=== PATIENT | male | born 1990 | race Caucasian/White ===

== ENCOUNTER 2021-06-24 04:21 | Emergency (ER) | payer OTHER ==
[~2021-06-24] VITALS: Ht 175.3 cm; Wt 90.9 kg
[2021-06-24 05:25] VITALS: BP 112/75
[2021-06-24] MEDS ORDERED: AZITHROMYCIN 500 MG TABLET PO ONE (05:30)
[2021-06-24] MEDS ORDERED: LIDOCAINE/PF 1% 2 ML VIAL IM ONE (05:30)
[2021-06-24] MEDS ORDERED: CefTRIAXone SODIUM 1 GM/VIAL IM ONE (05:30)
== END 2021-06-24 05:50 | disposition home or self-care (01) ==
LOC: EMS 04:27
DX: N34.2 Other urethritis (principal)
CPT/HCPCS: 96372; 99283; A9575; J0696; J3490